=== PATIENT | female | born 1935 | race Caucasian/White ===

== ENCOUNTER 2016-06-27 17:20 | Emergency (ER) | payer MEDICARE, OTHER ==
[2016-06-27 17:50] VITALS: BP 131/73
== END 2016-06-27 19:59 | disposition left against medical advice (07) ==
LOC: ED 17:20
DX: R51 Headache (principal); Z53.21 Procedure and treatment not carried out due to patient leaving prior to being seen by health care provider

== ENCOUNTER 2017-10-20 08:01 | Day surgery (SDC) | payer MEDICARE ==
--- NOTE | 2017-10-16 21:05 | HP ---
CC: Dr. Rafael Gudino; Dr. Estelle Fajardo; [facility] in [place], [place] * ADMISSION HISTORY AND PHYSICAL: DATE OF ADMISSION: 10/20/17 - [facility] ATTENDING SURGEON: Monique Kan MD * (DICTATED BY JACOBO FLETCHER) CHIEF COMPLAINT: Right breast cancer. 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 A screening mammography was done at the [facility] in [place] on 09/19/17 showing an area of asymmetry in the upper outer right breast. This was confirmed by ultrasound, which showed a hypoechoic mass at the 10 o'clock position located 5 cm from the nipple measuring 0.3 x 0.4 x 0.4 cm. 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 The patient had not noted any changes in her breast. She had also undergone a left breast biopsy in September 2016 for an area of architectural distortion that by pathology showed ductal hyperplasia. A biopsy clip is present on recent imaging in the 12 o'clock position on the left breast. The patient was seen and examined in the office by Dr. Kan on 09/26/17 (see separate note). Her studies and past breast history were reviewed. Dr. Kan has recommended needle localization with wide excision and sentinel lymph node biopsy for this right breast cancer. The patient would like to proceed as scheduled. PAST MEDICAL HISTORY: Breast cancer as noted above, allergic rhinitis, and asthma, hyperlipidemia, history of tachycardia (treated with beta-regina), varicose veins, and peripheral edema. She denies history of ME or angina, HTN, or DM. PAST SURGICAL HISTORY: Right breast lumpectomy in 1999 for DCIS, left carpal tunnel release, bilateral total knee replacement, left cataract extraction. CURRENT MEDICATIONS: 1. Atenolol 25 mg once daily. 2. Fish oil 1000 mg once daily. 3. Co-Q10 100 mg once daily. 4. Zyrtec 10 mg once daily p.r.n. 5. Advair 250/50 one puff b.i.d. 6. Albuterol MDI p.r.n. 7. Veramyst nasal spray 1 spray each nostril once daily. 8. Claritin 10 mg once daily p.r.n. 9. Singulair 10 mg once daily. 10. Lipitor 10 mg once daily. 11. Aspirin 81 mg once daily (the patient instructed to hold preoperatively, her last dose being today, 10/16/17). 12. Lorazepam 1 mg at h.s. p.r.n. for insomnia (has only used a couple of doses recently). 13. Multivitamin once daily. 14. Ipratropium nebulizer p.r.n. DRUG ALLERGIES: None known. FAMILY HISTORY: Negative for breast cancer, but positive for ovarian cancer in 2 of her sisters, both diagnosed in their 40s. No family history of anesthesia problems, bleeding or clotting disorders. SOCIAL HISTORY: The patient is . She also has an adopted foster son living with them currently. 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 She admits to drinking approximately one half bottle of wine per day. She denies tobacco use or other recreational drugs. REVIEW OF SYSTEMS: General: No recent constitutional symptoms or acute illnesses other than described in the HPI. Eyes: No recent changes in vision. She has pending right cataract extraction, but on hold for the present problem. Ears, Nose, Throat: No problems reported. Cardiovascular: No chest pain or palpitations. No history of hypertension, tachycardia well controlled with current atenolol. Respiratory: No recent exacerbations of her asthma or allergies. No chronic cough. GI: No problems reported. Colonoscopy last done in 2010 per her chart record and reportedly normal. : No problems reported. 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 PHYSICAL EXAMINATION GENERAL: A well-nourished, well-developed female, in no acute distress. VITAL SIGNS: Height 65 inches, weight 187 pounds by history. Blood pressure 128/70, pulse 66, respirations 18. SKIN: Warm and dry. No suspicious rashes or lesions. HEENT: Pupils are equal and round, reactive. EOMs intact. No conjunctival pallor. Oropharynx: Teeth in good repair. No intraoral lesions. NECK: No lymphadenopathy in the cervical or supraclavicular regions. No palpable axillary adenopathy. BREASTS: (Per PA student, Beth Alvarado), there is a 1.5 cm slightly mobile mass in the upper outer quadrant of the right breast. It is nontender. There are no skin or nipple changes. There is no palpable lymphadenopathy. Left breast was not specifically reexamined today. ABDOMEN: Soft, nontender to palpation. No palpable masses or organomegaly. GENITALIA/RECTAL: Not done. BACK: No spinous process or CVA tenderness. EXTREMITIES: 1+ edema bilaterally with some varicose veins. No open lesions. She does have some changes consistent with chronic venous insufficiency i.e. hyperpigmentation. NEUROLOGICAL: Grossly intact. IMPRESSION: Right breast cancer. PLAN: Wide excision, right breast cancer (after needle localization); sentinel lymph node biopsy. JACOBO FLETCHER [id number]/[facility] #: [id number] MTDD
[~2017-10-20 08:01] MED LIST: Buffered Lidocaine 0.9% SYRIN* 5 ML/SYR SYRINGE INTRADERM ONE; Famotidine IV* 10 MG/ML 2 ML (20 mg) IV ONE; Famotidine IV* 10 MG/ML 2 ML (20 mg) ONE
[2017-10-20] MEDS ORDERED: Lidocaine 2.5%/Prilocain 2.5%* 5 GM TUBE ONE (08:02)
[2017-10-20] MEDS ORDERED: ceFAZolin 2 GM PREMIX (*) 2 GM/50 ML BAG IVPB ONE (08:02)
--- NOTE | 2017-10-20 12:31 | RAD ---
INDICATION: Right breast carcinoma COMPARISON: Mammogram February 20, 2018 TECHNIQUE/FINDINGS:: Informed consent was obtained. A routine timeout protocol was utilized. The right breast was prepped in usual fashion and following routine cleansing of the breast a total of 0.303 mCi of technetium 99m sulfur colloid was injected intradermally in the periareolar region in 4 divided doses. After approximately 80 minutes there was faint visualization of the sentinel node which was marked on the skin surface. IMPRESSION: A SENTINEL NODE WAS MARKED BUT THERE WAS VERY FAINT ACTIVITY.
--- NOTE | 2017-10-20 14:58 | RAD ---
INDICATION: Right breast carcinoma 10:00. COMPARISON: Breast MRI September 22, 2017; right breast mammogram September 19, 2017 TECHNIQUE/FINDINGS: Informed consent was obtained. A routine timeout protocol was utilized. The right breast was prepped in usual fashion and from a cephalad approach the microclip at the 10:00 position of the right breast was localized without difficulty. A wire was placed immediately adjacent microclip. The patient tolerated the procedure well. There were no procedural complications. The specimen radiograph is currently pending. A sentinel node scan is to follow. IMPRESSION: SUCCESSFUL WIRE NEEDLE LOCALIZATION MICROCLIP 10:00 POSITION RIGHT BREAST.
[2017-10-20] MEDS ORDERED: Midazolam* 1 MG/ML 5 ML VIAL (5 MG) ONE (17:03)
[2017-10-20] MEDS ORDERED: fentaNYL* 50 MCG/ML 2 ML VIAL (100 MCG VIAL) ONE (17:03)
[2017-10-20] MEDS ORDERED: Propofol* 10 MG/ML 20 ML BTL IV PUSH ONE ×3 (17:03→19:24)
[2017-10-20] MEDS ORDERED: Ondansetron ODT TAB* 4 MG ONE (17:03)
[2017-10-20] MEDS ORDERED: Ketorolac INJ* 30 MG/ML 1 ML VIAL ONE (17:03)
[2017-10-20] MEDS ORDERED: Dexamethasone IV* 4 MG/ML 1 ML (4 MG) ONE (17:03)
[2017-10-20] MEDS ORDERED: Lidocaine 2% PF * 5 ML VIAL ONE (17:03)
[2017-10-20] MEDS ORDERED: KETAMINE HCL* 50 MG/ML 10 ML VIAL ONE (17:03)
[2017-10-20] MEDS ORDERED: Methylene Blue 0.5 %* 50 MG/10 ML AMP IV ONE (17:07)
[2017-10-20] MEDS ORDERED: Lidocaine 1% MPF wEPI 200,000* 30 ML SDV ONE (18:14)
[2017-10-20] MEDS ORDERED: Bupivacaine 0.5% SDV PF* 30ML VIAL ONE (18:15)
[2017-10-20] MEDS ORDERED: Metoprolol Tartrate IV* 1 MG/ML 5 ML VIAL ONE (19:00)
[2017-10-20] MEDS ORDERED: Naloxone* 0.4 MG/ML 1 ML VIAL IV PRN (19:30)
[2017-10-20] MEDS ORDERED: Acetaminophen IV 1GM/100ML * 1,000 MG/100 ML VIAL IVPB ONE (19:30)
[2017-10-20] MEDS ORDERED: fentaNYL* 50 MCG/ML 2 ML VIAL (100 MCG VIAL) IV PRN (19:30)
[2017-10-20] MEDS ORDERED: Levalbuterol 0.63MG/3ML NEB* UNIT OF USE INH PRN (19:30)
[2017-10-20] MEDS ORDERED: Ondansetron ODT TAB* 4 MG PO PRN (19:30)
--- NOTE | 2017-10-20 20:04 | BRIEFOPN ---
Brief Operative Note - Surgery Procedures: Procedures CARPAL TUNNEL RELEASE (03/06/14) CORONARY ARTERIOGRAM NEC (01/08/08) ENDOSC POLYPECTOMY OF LG INTEST (05/14/02) LEFT HEART CARDIAC CATH (01/08/08) 10/20/17 Op Note (dictated) Pre-op dx: right breast cancer Post-op dx: same Procedure: needle localization excision of right breast cancer and sentinel lymph node biopsy Surgeon: Lucius Asst: Jenny Anesth: local-MAC EBL: 5 cc Complications: none SCDs on during surgery Abx: given pre-op Pt. tolerated procedure well and was transferred to in a stable condition. CLFoster
[2017-10-20] MEDS ORDERED: HYDROcodone/ACETAMIN 5-325 MG* 1 TAB PO PRN (20:05)
[2017-10-20 20:35] VITALS: BP 148/63
--- NOTE | 2017-10-21 18:22 | OP ---
CC: [facility]. OPERATIVE REPORT: DATE OF OPERATION: 10/20/17 DATE OF : 37 SURGEON: Monique Kan MD RUM PROCESSING OPERATOR: JACOBO Alvarado student. PRE-OP DIAGNOSIS: Right breast cancer. POST-OP DIAGNOSIS: Right breast cancer. OPERATIVE PROCEDURE: Needle localization excision of right breast cancer and sentinel lymph node biopsy. INDICATIONS: Ms. Dawson is an 82-year-old woman who was recently diagnosed with breast cancer prompting the plan for surgical intervention. DESCRIPTION OF PROCEDURE: On the morning of surgery, she underwent needle localization and sentinel lymph node localization. The sentinel lymph node localization was fairly faint, so the decision was made to inject blue dye in the holding area. This was done prior to proceeding back to the OR. She was then brought to the operating room, placed on the OR table in a supine position and given IV sedation. The right breast was prepped and draped in the usual sterile fashion taking care not to dislodge the localizing wire. After infiltrating with local anesthetic, a curvilinear incision encompassing the wire and a previous scar was made. Subcutaneous tissue was divided with electrocautery and to excise the mass of tissue from around the wire. This was marked in the usual fashion and handed off as a specimen. Meanwhile, hemostasis was achieved with electrocautery and then attention was turned to the axilla which could be reached through the breast incision. An incision was made along the pectoralis muscle and axillary contents were swept posteriorly. Using the navigator a sentinel node was identified. It had counts on the order of 163 and it was removed using clips to control small lymphatic and blood vessels that approached it and then the ex vivo counts were checked and were 173. The axillary bed counts were 0. The wound was irrigated with saline. Additional local was instilled into the wound and then closure was accomplished with 3-0 Vicryl in the subcutaneous layer and the skin was closed with 4-0 Prolene in the subcuticular fashion. Steri-strips and a dry sterile dressing were applied. All sponge and instrument counts were correct. The patient tolerated the procedure well and was transferred to recovery in a stable condition. [id number]/[facility] #: [id number] [facility]
== END 2017-10-20 20:51 | disposition home or self-care (01) ==
LOC: SDS 08:01
PROVIDERS: ATTEND Surgery
DX: C50.911 Malignant neoplasm of unspecified site of right female breast (principal); J45.909 Unspecified asthma, uncomplicated; E78.5 Hyperlipidemia, unspecified; I83.893 Varicose veins of bilateral lower extremities with other complications; I47.1 Supraventricular tachycardia; Z79.899 Other long term (current) drug therapy; F41.9 Anxiety disorder, unspecified; M19.90 Unspecified osteoarthritis, unspecified site
CPT/HCPCS: 78195; 88271; 88307; 88342; 88360; A9270-GY; A9541; J0690; J1100; J1885; J2001; J2250; J2704; J3010; J3490

== ENCOUNTER 2018-05-02 08:18 | Emergency (ER) | payer MEDICARE ==
--- NOTE | 2018-05-02 08:32 | ED ---
Lower Extremity - HPI Summary HPI Summary: Patient is a 82 y/o F presenting to ED with complaints of pain at right hip and right upper leg after falling in her driveway a few days ago. Patient had thought that the pain would resolve on its own, but it has persisted. She ambulated into the room without any assistance. Patient notes that pain is exacerbated with certain movements. In the room, pain is rated 7/10. 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 Home medications and allergies are reviewed. - History of Current Complaint Stated Complaint: RIGHT LEG PAIN Time Seen by Provider: 05/02/18 08:20 Hx Obtained From: Patient Mechanism Of Injury: Fall From A Standing Position Onset of Pain: Immediate, Days - onset a few days ago, Prior to Arrival Onset/Duration: Still Present - onset a few days ago Severity Currently: Severe - 7/10 Pain Intensity: 7 Pain Scale Used: 0-10 Numeric - 7/10 Timing: Constant, Lasting Days - onset a few days ago Location: Is Discrete @ - right hip, right upper leg Associated Signs And Symptoms: Positive: Other - right hip pain, right upper leg pain Aggravating Factor(s): Standing, Movement - certain, Other - shift weight on affected legs Alleviating Factor(s): Nothing - Allergies/Home Medications Allergies/Adverse Reactions: Allergies Allergy/AdvReac Type Severity Reaction Status Date / Time Adhesive Tape Allergy Itching Verified 10/20/17 13:30 hydrocodone AdvReac Intermediate Vomiting Verified 10/20/17 08:30 ENVIRONMENTAL Allergy Eyes Uncoded 10/20/17 08:30 Itchy/Swollen/Red/Watery PMH/Surg Hx/FS Hx/Imm Hx Endocrine/Hematology History: Denies: Hx Anticoagulant Therapy - ASA daily, Hx Blood Disorders, Hx Diabetes , Hx Unexplained Bleeding Cardiovascular History: Reports: Hx Hypertension - ON MEDS PT. STATES CONTROLLED , Other Cardiovascular Problems/Disorders - varicose veins Denies: Hx Deep Vein Thrombosis Respiratory History: Reports: Hx Asthma GI History: Reports: Other GI Disorders - CONSTIPATION AT TIMES Sensory History: Reports: Hx Contacts or Glasses - GLASSES FOR DRIVING AT NIGHT , Hx Glaucoma - LEFT EYE Denies: Hx Hearing Aid Opthamlomology History: Reports: Hx Contacts or Glasses - GLASSES FOR DRIVING AT NIGHT, Hx Glaucoma - LEFT EYE Psychiatric History: Reports: Hx Anxiety - Surgical History Surgery Procedure, Year, and Place: RIGHT BREAST LUMPECTOMY 2012 [place]. T AND A A CHILD Hx Anesthesia Reactions: No Infectious Disease History: No Infectious Disease History: Denies: Hx of Known/Suspected MRSA, Traveled Outside the [place] in Last 30 Days - Family History Known Family History: Negative: Hypertension, Diabetes - Social History Alcohol Use: Weekly Alcohol Amount: 4 PER DRINKS WEEK Substance Use Type: Reports: None Smoking Status (MU): Former Smoker Type: Cigarettes Amount Used/How Often: 1 Length of Time of Smoking/Using Tobacco: 2 MONTHS Have You Smoked in the Last Year: No Review of Systems Negative: Fever - on vitals, temp is 97.4 F Positive: Other - POSITIVE - RIGHT HIP PAIN, RIGHT UPPER LEG PAIN All Other Systems Reviewed And Are Negative: Yes Physical Exam - Summary Physical Exam Summary: VITAL SIGNS: Reviewed. GENERAL: Patient is a well-developed and nourished FEMALE who is lying comfortable in the stretcher. Patient is not in any acute respiratory distress. HEAD AND FACE: No signs of trauma. No ecchymosis, hematomas or skull depressions. No sinus tenderness. EYES: PERRLA, EOMI x 2, No injected conjunctiva, no nystagmus. EARS: Hearing grossly intact. Ear canals and tympanic membranes are within normal limits. MOUTH: Oropharynx within normal limits. NECK: Supple, trachea is midline, no adenopathy, no JVD, no carotid bruit, no c- spine tenderness, neck with full ROM. CHEST: Symmetric, no tenderness at palpation LUNGS: Clear to auscultation bilaterally. No wheezing or crackles. CVS: Regular rate and rhythm, S1 and S2 present, no murmurs or gallops appreciated. ABDOMEN: Soft, non-tender. No signs of distention. No rebound no guarding, and no masses palpated. Bowel sounds are normal. EXTREMITIES: FROM in all major joints, no edema, no cyanosis or clubbing. There is tenderness at right hip and right proximal area of the right femur. Good pulses, good capillary refill. NEURO: Alert and oriented x 3. No acute neurological deficits. Speech is normal and follows commands. SKIN: Dry and warm Triage Information Reviewed: Yes Vital Signs On Initial Exam: Initial Vitals Temp Pulse Resp BP Pulse Ox 97.4 F 64 18 131/64 94 05/02/18 08:20 05/02/18 08:20 05/02/18 08:20 05/02/18 08:20 05/02/18 08:20 Vital Signs Reviewed: Yes Diagnostics - Vital Signs Vital Signs Temp Pulse Resp BP Pulse Ox 05/02/18 08:20 97.4 F 64 18 131/64 94 - Laboratory Result Diagrams: 05/02/18 09:02 05/02/18 09:02 Lab Statement: Any lab studies that have been ordered have been reviewed, and results considered in the medical decision making process. - Radiology right femur x-ray Radiology Interpretation Completed By: Radiologist Summary of Radiographic Findings: IMPRESSION: Cortical thickening of the midshaft of the femur with some linear lucency for. which a nondisplaced fracture is not totally excluded and correlation with CT is. suggested. THIS REPORT WAS REVIEWED BY ED PHYSICIAN. pelvic x-ray Radiology Interpretation Completed By: Radiologist Summary of Radiographic Findings: IMPRESSION: #. No radiographic evidence for pelvic fracture. THIS REPORT WAS REVIEWED BY ED PHYSICIAN. - CT lower extremity ct CT Interpretation Completed By: Radiologist Summary of CT Findings: IMPRESSION: NO EVIDENCE FOR FRACTURE. THIS REPORT WAS REVIEWED BY ED PHYSICIAN. Re-Evaluation - Re-Evaluation First Eval Re-Evaluation Time: 10:38 Comment: I discussed all the findings and test results with the patient. Patient was instructed to return to the emergency room immediately if any of the symptoms return or worsens. Plan of care was discussed with the patient and understands and agrees. All questions were answered at patient satisfaction. There were no further complaints or concerns. Lung exam before discharge: CTA B /L. Good air exchange. No wheezing or crackles heard. CVS: S1 and S2 present. No murmurs appreciated. Patient is alert and oriented x 3. Patient is hemodynamically stable. Patient will be discharged home with follow up PCP in the next 2-3 days Lower Extremity Course/Dx - Course Assessment/Plan: Patient is a 82 y/o F presenting to ED with complaints of pain at right hip and right upper leg after falling in her driveway a few days ago. Patient had thought that the pain would resolve on its own, but it has persisted. She ambulated into the room without any assistance. Patient notes that pain is exacerbated with certain movements. In the room, pain is rated 7/ 10. 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 Home medications and allergies are reviewed. Blood workup without any significant abnormality except for CRP of 25 and total protein of 6. Right pelvic x-ray impression: No radiographic evidence for pelvic fracture. And a femur x-ray impression: Cortical thickening of the need shaft of the femur with some linear lucency for which an nondisplaced fracture is not totally excluded Correlate with the CT of the femur. CT of the right femur impression: No evidence for fracture. Therefore the patient will be given Toradol for the pain and will be discharged home with follow-up with primary care physician. I discussed all the findings and test results with the patient. Patient was instructed to return to the emergency room immediately if any of the symptoms return or worsens. Plan of care was discussed with the patient and understands and agrees. All questions were answered at patient satisfaction. There were no further complaints or concerns. Lung exam before discharge: CTA B/L. Good air exchange. No wheezing or crackles heard. CVS: S1 and S2 present. No murmurs appreciated. Patient is alert and oriented x 3. Patient is hemodynamically stable. Patient will be discharged home with follow up PCP in the next 2-3 days - Diagnoses Provider Diagnoses: Hip pain, Leg pain Discharge - Sign-Out/Discharge Documenting (check all that apply): Patient Departure - DISCHARGE - Discharge Plan Condition: Stable Disposition: HOME Patient Education Materials: Hip Pain (ED), Leg Pain (ED) Referrals: Rafael Gudino MD [Primary Care Provider] - 3 Days Additional Instructions: RETURN TO ED FOR NEW OR WORSENING SYMPTOMS. FOLLOW UP WITH YOUR PRIMARY CARE PHYSICIAN IN 2-3 DAYS. - Billing Disposition and Condition Condition: STABLE Disposition: Home - Attestation Statements Document Initiated by Alexia: Yes Documenting Scribe: RUBEN LUNDBERG Provider For Whom Alexia is Documenting (Include Credential): MAHAMED ROGERS MD Scribe Attestation: RUBEN Su, scribed for MAHAMED ROGERS MD on 05/03/18 at 2145. Scribe Documentation Reviewed: Yes Provider Attestation: The documentation as recorded by the RUBEN hawkins accurately reflects the service I personally performed and the decisions made by me, MAHAMED ROGERS MD Status of Scribe Document: Viewed
[2018-05-02 09:17] LABS: ABS Basophils 0 10^3/ul (0-0.2); ABS Eosinophils 0.2 10^3/ul (0-0.6); ABS Lymphocytes 0.9 10^3/ul (1.0-4.8); ABS Monocytes 0.5 10^3/ul (0-0.8); ABS Neutrophils 2.5 10^3/ul (1.5-7.7); ABS Nucleated RBC 0 10^3/ul; Eosinophil % 5.8 %; Hematocrit 39 % (35-47); Hemoglobin 13.4 g/dl (12.0-16.0); Lymphocyte % 20.6 %; Mean Corpuscular HGB Conc 34 g/dl (31-36); Mean Corpuscular Hemoglobin 34 pg (27-31); Mean Corpuscular Volume 100 fL (80-97); Mean Platelet Volume 7.4 fL (7.4-10.4); Nucleated Red Blood Cells % 0.1; Platelet Count 187 10^3/ul (150-450); Red Blood Count 3.93 10^6/ul (4.00-5.40); Red Cell Distribution Width 13 % (10.5-15); White Blood Count 4.1 10^3/ul (3.5-10.8)
[2018-05-02 09:32] LABS: EGFR Non-African American 101.8 (>60)
[2018-05-02] MEDS ORDERED: Ketorolac INJ* 60 MG/2 ML VIAL IM ONE (10:36)
[2018-05-02 11:05] VITALS: BP 118/62
== END 2018-05-02 11:04 | disposition home or self-care (01) ==
LOC: ED 08:18
DX: M25.551 Pain in right hip (principal); M79.651 Pain in right thigh; I10 Essential (primary) hypertension; Z79.82 Long term (current) use of aspirin; J45.909 Unspecified asthma, uncomplicated; Z87.891 Personal history of nicotine dependence; W19.XXXA Unspecified fall, initial encounter; Y92.007 Garden or yard of unspecified non-institutional (private) residence as the place of occurrence of the external cause
CPT/HCPCS: 36415; 72170; 80053; 83605; 85025; 86140; 96372; 99282; J1885

== ENCOUNTER 2023-02-21 15:18 | Inpatient (IN) ==
[2023-02-21] MEDS ORDERED: Ondansetron 4 mg VIAL 2 MG/ML 2 ml VIAL IV ONE (15:34)
[2023-02-21] MEDS ORDERED: Morphine 2 MG/ML SYRINGE IV ONE ×2 (15:34→22:58)
[2023-02-21 15:49] LABS: ABS Eosinophils 0.1 10^3/uL (0.0-0.5); ABS Lymphocytes 1.3 10^3/uL (1.0-4.8); ABS Monocytes 0.3 10^3/uL (0.0-0.9); ABS Nucleated RBC 0.01 10^3/ul; Eosinophil % 2.1 %; Hematocrit 35.9 % (35-45); Hemoglobin 12.3 g/dL (11.5-14.3); Lymphocyte % 27.1 %; Mean Corpuscular Hemoglobin 33.2 pg (27-33); Mean Corpuscular Hgb Conc 34.1 g/dL (31-36); Mean Corpuscular Volume 97.1 fL (80-97); Mean Platelet Volume 6.9 fL (7.5-11.2); Nucleated Red Blood Cells % 0.1 /100 WBC (0.0-0.4); Platelet Count 213 10^3/uL (150-450); Red Blood Count 3.69 10^6/uL (3.63-4.92); Red Cell Distribution Width 13.9 % (12-17); White Blood Count 4.8 10^3/uL (3.8-11.8)
[2023-02-21 16:10] LABS: Albumin 3.5 g/dL (3.2-5.2); Calcium 8.5 mg/dL (8.6-10.3); Magnesium 1.9 mg/dL (1.9-2.7); Potassium 3.6 mmol/L (3.5-5.0); Total Bilirubin 0.3 mg/dL (0.2-1.0)
[2023-02-21 16:16] LABS: Albumin/Globulin Ratio 1.5 (1-3); Creatinine, Serum 0.54 mg/dL (0.51-0.95); Globulin 2.4 g/dL (2-4); Total Protein 5.9 g/dL (6.4-8.9); eGFR CKD-EPI 89.6 (>60)
[2023-02-21 17:25] LABS: High Sensitivity Troponin 1 Hr 9 pg/mL (<15)
[2023-02-21 18:43] LABS: Urine Appearance Cloudy; Urine Bilirubin Negative (Negative); Urine Blood 1+ (Negative); Urine Color Yellow; Urine Glucose Negative (Negative); Urine Ketones Negative (Negative); Urine Nitrite Negative (Negative); Urine Protein Negative (Negative); Urine Specific Gravity 1.018 (1.002-1.030); Urine Urobilinogen Negative (Negative)
[2023-02-21 18:51] LABS: Urine Bacteria 1+ (Absent); Urine Red Blood Cell 2+(6-10/hpf) (Absent); Urine Squamous Epithelial Cell Present (Absent); Urine White Blood Cell 3+(>20/hpf) (Absent)
[2023-02-21] MEDS ORDERED: Heparin 5000 UNITS/ML 1 mL VIAL SUBCUT ONE (21:36)
[2023-02-21] MEDS: Acetaminophen IV 1 GM/100ML 1,000 MG/100 ML BAG IV PRN (21:50)
[2023-02-21 22:15] LABS: ABS Lymphocytes 0.7 10^3/uL (1.0-4.8); ABS Monocytes 0.5 10^3/uL (0.0-0.9); Eosinophil % 0.3 %; Hematocrit 34.4 % (35-45); Hemoglobin 11.7 g/dL (11.5-14.3); Lymphocyte % 8.1 %; Mean Corpuscular Hemoglobin 33.1 pg (27-33); Mean Corpuscular Hgb Conc 33.9 g/dL (31-36); Mean Corpuscular Volume 97.8 fL (80-97); Mean Platelet Volume 6.6 fL (7.5-11.2); Platelet Count 196 10^3/uL (150-450); Red Blood Count 3.52 10^6/uL (3.63-4.92); White Blood Count 8.2 10^3/uL (3.8-11.8)
[2023-02-21 22:29] LABS: Creatinine, Serum 0.58 mg/dL (0.51-0.95); eGFR CKD-EPI 88.1 (>60)
[2023-02-21 22:44] LABS: Activated Partial Thrombo Time 28.9 seconds (26.0-38.0); INR 1.03 (0.83-1.13)
[2023-02-22 07:19] LABS: ABS Lymphocytes 0.9 10^3/uL (1.0-4.8); ABS Monocytes 0.4 10^3/uL (0.0-0.9); ABS Neutrophils 4.8 10^3/uL (1.5-7.6); Eosinophil % 0.3 %; Hematocrit 35.2 % (35-45); Lymphocyte % 14.4 %; Mean Corpuscular Hemoglobin 33.2 pg (27-33); Mean Corpuscular Hgb Conc 34.1 g/dL (31-36); Mean Corpuscular Volume 97.6 fL (80-97); Mean Platelet Volume 6.8 fL (7.5-11.2); Platelet Count 189 10^3/uL (150-450); Red Blood Count 3.61 10^6/uL (3.63-4.92); Red Cell Distribution Width 13.6 % (12-17); White Blood Count 6.1 10^3/uL (3.8-11.8)
[2023-02-22 07:29] LABS: Calcium 9.3 mg/dL (8.6-10.3); Creatinine, Serum 0.67 mg/dL (0.51-0.95); Potassium 4.2 mmol/L (3.5-5.0); eGFR CKD-EPI 85.1 (>60)
[2023-02-22] MEDS: Mometasone/Formoter 100/5 MDI INH SCH ×2 (08:19→20:07)
[2023-02-22] MEDS ORDERED: Lactated Ringers 1000 ml BAG 1,000 ML IV ONE (09:38)
[2023-02-22] MEDS: Acetaminophen IV 1 GM/100ML 1,000 MG/100 ML BAG IV PRN ×2 (11:32→20:44)
[2023-02-22] MEDS ORDERED: Heparin 5000 UNITS/ML 1 mL VIAL SUBCUT ONE (20:56)
[2023-02-23 05:45] LABS: ABS Eosinophils 0.1 10^3/uL (0.0-0.5); ABS Lymphocytes 0.9 10^3/uL (1.0-4.8); ABS Monocytes 0.6 10^3/uL (0.0-0.9); ABS Neutrophils 4.8 10^3/uL (1.5-7.6); Eosinophil % 1.9 %; Hemoglobin 10.3 g/dL (11.5-14.3); Lymphocyte % 14.5 %; Mean Corpuscular Hemoglobin 33.4 pg (27-33); Mean Corpuscular Hgb Conc 34.3 g/dL (31-36); Mean Corpuscular Volume 97.4 fL (80-97); Mean Platelet Volume 6.9 fL (7.5-11.2); Nucleated Red Blood Cells % 0.1 /100 WBC (0.0-0.4); Platelet Count 150 10^3/uL (150-450); Red Blood Count 3.08 10^6/uL (3.63-4.92); Red Cell Distribution Width 13.9 % (12-17); White Blood Count 6.5 10^3/uL (3.8-11.8)
[2023-02-23 05:50] LABS: INR 1.14 (0.83-1.13)
[2023-02-23] MEDS: Acetaminophen IV 1 GM/100ML 1,000 MG/100 ML BAG IV PRN (06:00)
[2023-02-23 06:04] LABS: Calcium 8.6 mg/dL (8.6-10.3); Creatinine, Serum 0.5 mg/dL (0.51-0.95); Magnesium 1.9 mg/dL (1.9-2.7); Potassium 3.9 mmol/L (3.5-5.0); eGFR CKD-EPI 91.3 (>60)
[2023-02-23] MEDS: Mometasone/Formoter 100/5 MDI INH SCH ×2 (08:39→18:56)
[2023-02-23] MEDS ORDERED: Propofol 10 MG/ML 20 ML BTL ONE ×2 (09:09→11:17)
[2023-02-23] MEDS ORDERED: fentaNYL 100 mcg/2 ml 50 MCG/ML VIAL ONE ×2 (09:09→12:38)
[2023-02-23] MEDS ORDERED: Lidocaine 2% PF 5 ML VIAL ONE (09:09)
[2023-02-23] MEDS ORDERED: Phenylephrine IV 10 MG/ML 1 ml VIAL ONE (09:09)
[2023-02-23] MEDS ORDERED: Ondansetron 4 mg VIAL 2 MG/ML 2 ml VIAL ONE (09:09)
[2023-02-23] MEDS ORDERED: Bupivacaine 0.5% SDV PF 30ML VIAL ONE ×2 (09:59→10:06)
[2023-02-23] MEDS ORDERED: ceFAZolin 2 GM in NS PREMIX 2 GM/100 ML BAG IVPB ONE (10:03)
[2023-02-23] MEDS ORDERED: KETAMINE HCL 10 MG/ML 20 ml VIAL (200 MG) ONE (10:05)
[2023-02-23] MEDS ORDERED: Naloxone 0.4 mg VIAL 0.4 mg/ml 1 ml VIAL IV PRN (11:23)
[2023-02-23] MEDS ORDERED: fentaNYL 100 mcg/2 ml 50 MCG/ML VIAL IV PRN (11:23)
[2023-02-23] MEDS ORDERED: Acetaminophen IV 1 GM/100ML 1,000 MG/100 ML BAG IV PRN (11:23)
[2023-02-23] MEDS ORDERED: Ondansetron 4 mg VIAL 2 MG/ML 2 ml VIAL IV PRN ×2 (11:23→12:34)
[2023-02-23] MEDS ORDERED: HYDROmorphone 1 MG/1 ML SYRINGE IV PRN (11:23)
[2023-02-23] MEDS ORDERED: Senna TAB 8.6 mg TAB PO PRN (12:31)
[2023-02-23] MEDS ORDERED: Magnesium Hydroxide LIQ 30 ML UDC PO PRN ×3 (12:31→12:39)
[2023-02-23] MEDS ORDERED: Polyethylene Glycol 3350 17 GM PACKET PO PRN (12:31)
[2023-02-23] MEDS ORDERED: Morphine 2 MG/ML SYRINGE IV PRN (12:34)
[2023-02-23] MEDS ORDERED: Lidocaine PATCH 4% TOPICAL PRN (12:39)
[2023-02-23] MEDS ORDERED: Benzocaine/Menthol LOZ MT PRN (12:39)
[2023-02-23] MEDS ORDERED: guaiFENesin 100 mg/5 ml LIQ unit dose cup PO PRN (12:39)
[2023-02-23 13:19] LABS: Hematocrit 25.7 % (35-45); Hemoglobin 8.9 g/dL (11.5-14.3)
[2023-02-23] MEDS ORDERED: Acetaminophen IV 1 GM/100ML 1,000 MG/100 ML BAG IV ONE (16:22)
[2023-02-23] MEDS: ceFAZolin 1 GM ADVAN 1 GM in NS 0.9% 50 ML 50 ML IVPB SCH (20:38)
[2023-02-23] MEDS: Magnesium Hydroxide LIQ 30 ML UDC PO SCH (20:46)
[2023-02-23] MEDS ORDERED: Magnesium Hydroxide LIQ 30 ML UDC PO SCH (21:00)
[2023-02-24] MEDS: ceFAZolin 1 GM ADVAN 1 GM in NS 0.9% 50 ML 50 ML IVPB SCH ×2 (02:08→10:39)
[2023-02-24 06:16] LABS: ABS Eosinophils 0.1 10^3/uL (0.0-0.5); ABS Lymphocytes 1.6 10^3/uL (1.0-4.8); ABS Monocytes 0.8 10^3/uL (0.0-0.9); ABS Neutrophils 5.6 10^3/uL (1.5-7.6); ABS Nucleated RBC 0.01 10^3/ul; Eosinophil % 0.8 %; Hematocrit 23.1 % (35-45); Hemoglobin 8.2 g/dL (11.5-14.3); Lymphocyte % 20.2 %; Mean Corpuscular Hemoglobin 33.8 pg (27-33); Mean Corpuscular Hgb Conc 35.5 g/dL (31-36); Mean Corpuscular Volume 95.1 fL (80-97); Mean Platelet Volume 7.5 fL (7.5-11.2); Nucleated Red Blood Cells % 0.1 /100 WBC (0.0-0.4); Platelet Count 132 10^3/uL (150-450); Red Blood Count 2.42 10^6/uL (3.63-4.92); Red Cell Distribution Width 15.1 % (12-17)
[2023-02-24 06:24] LABS: Calcium 7.8 mg/dL (8.6-10.3); Creatinine, Serum 0.63 mg/dL (0.51-0.95); Potassium 4.2 mmol/L (3.5-5.0); eGFR CKD-EPI 86.3 (>60)
[2023-02-24] MEDS: Mometasone/Formoter 100/5 MDI INH SCH ×2 (08:27→19:51)
[2023-02-24] MEDS: Magnesium Hydroxide LIQ 30 ML UDC PO SCH ×2 (09:04→20:29)
[2023-02-24] MEDS: Aspirin EC 81 mg TAB.EC (enteric coated) PO SCH (09:04)
[2023-02-24] MEDS: Polyethylene Glycol 3350 17 GM PACKET PO PRN (10:02)
[2023-02-24] MEDS: Enoxaparin 40 MG/0.4 ML SYR SUBCUT SCH (12:52)
[2023-02-24] MEDS: cefTRIAXone 1 gm/50 mL D5W 1 GM/50 ML BAG IV SCH (20:44)
[2023-02-25] MEDS: Acetaminophen IV 1 GM/100ML 1,000 MG/100 ML BAG IV PRN ×2 (02:41→13:56)
[2023-02-25 05:46] LABS: ABS Eosinophils 0.1 10^3/uL (0.0-0.5); ABS Lymphocytes 1.3 10^3/uL (1.0-4.8); ABS Monocytes 0.8 10^3/uL (0.0-0.9); ABS Nucleated RBC 0.01 10^3/ul; Eosinophil % 0.9 %; Hematocrit 18.8 % (35-45); Hemoglobin 6.5 g/dL (11.5-14.3); Lymphocyte % 12.4 %; Mean Corpuscular Hemoglobin 33.4 pg (27-33); Mean Corpuscular Hgb Conc 34.7 g/dL (31-36); Mean Corpuscular Volume 96.4 fL (80-97); Mean Platelet Volume 7.8 fL (7.5-11.2); Nucleated Red Blood Cells % 0.1 /100 WBC (0.0-0.4); Platelet Count 154 10^3/uL (150-450); Red Blood Count 1.95 10^6/uL (3.63-4.92); Red Cell Distribution Width 14.6 % (12-17); White Blood Count 10.2 10^3/uL (3.8-11.8)
[2023-02-25 06:08] LABS: Calcium 7.7 mg/dL (8.6-10.3); Creatinine, Serum 0.53 mg/dL (0.51-0.95); Magnesium 2.4 mg/dL (1.9-2.7); Potassium 4.5 mmol/L (3.5-5.0)
[2023-02-25] MEDS: Magnesium Hydroxide LIQ 30 ML UDC PO SCH ×2 (07:44→20:50)
[2023-02-25] MEDS: Mometasone/Formoter 100/5 MDI INH SCH ×2 (08:48→19:49)
[2023-02-25] MEDS: Aspirin EC 81 mg TAB.EC (enteric coated) PO SCH (09:34)
[2023-02-25] MEDS: Enoxaparin 40 MG/0.4 ML SYR SUBCUT SCH (12:42)
[2023-02-25 16:21] LABS: Hematocrit 19.9 % (35-45); Hemoglobin 7.1 g/dL (11.5-14.3)
[2023-02-25] MEDS: cefTRIAXone 1 gm/50 mL D5W 1 GM/50 ML BAG IV SCH (20:39)
[2023-02-26 05:48] LABS: ABS Basophils 0.1 10^3/uL (0.0-0.1); ABS Eosinophils 0.2 10^3/uL (0.0-0.5); ABS Lymphocytes 1.3 10^3/uL (1.0-4.8); ABS Monocytes 0.6 10^3/uL (0.0-0.9); ABS Neutrophils 6.6 10^3/uL (1.5-7.6); ABS Nucleated RBC 0.03 10^3/ul; Eosinophil % 1.8 %; Mean Corpuscular Hemoglobin 33.1 pg (27-33); Mean Corpuscular Hgb Conc 34.9 g/dL (31-36); Mean Corpuscular Volume 94.9 fL (80-97); Mean Platelet Volume 7.3 fL (7.5-11.2); Nucleated Red Blood Cells % 0.3 /100 WBC (0.0-0.4); Platelet Count 168 10^3/uL (150-450); Red Blood Count 2.11 10^6/uL (3.63-4.92); Red Cell Distribution Width 15.5 % (12-17); White Blood Count 8.7 10^3/uL (3.8-11.8)
[2023-02-26 06:06] LABS: Calcium 7.7 mg/dL (8.6-10.3); Creatinine, Serum 0.44 mg/dL (0.51-0.95); Magnesium 2.4 mg/dL (1.9-2.7); Potassium 3.9 mmol/L (3.5-5.0); eGFR CKD-EPI 94.1 (>60)
[2023-02-26] MEDS: Mometasone/Formoter 100/5 MDI INH SCH ×2 (08:01→19:58)
[2023-02-26] MEDS: Magnesium Hydroxide LIQ 30 ML UDC PO SCH ×2 (08:50→21:49)
[2023-02-26 12:10] LABS: Hematocrit 20.2 % (35-45)
[2023-02-26 21:48] LABS: Hematocrit 23.5 % (35-45); Hemoglobin 8.3 g/dL (11.5-14.3)
[2023-02-26] MEDS: cefTRIAXone 1 gm/50 mL D5W 1 GM/50 ML BAG IV SCH (21:49)
[2023-02-27 06:01] LABS: ABS Eosinophils 0.2 10^3/uL (0.0-0.5); ABS Lymphocytes 1.3 10^3/uL (1.0-4.8); ABS Monocytes 0.6 10^3/uL (0.0-0.9); ABS Neutrophils 5.5 10^3/uL (1.5-7.6); ABS Nucleated RBC 0.07 10^3/ul; Hematocrit 23.3 % (35-45); Hemoglobin 8.2 g/dL (11.5-14.3); Lymphocyte % 17.6 %; Mean Corpuscular Hemoglobin 32.6 pg (27-33); Mean Corpuscular Hgb Conc 35.1 g/dL (31-36); Mean Corpuscular Volume 92.9 fL (80-97); Mean Platelet Volume 7.1 fL (7.5-11.2); Nucleated Red Blood Cells % 0.9 /100 WBC (0.0-0.4); Platelet Count 195 10^3/uL (150-450); White Blood Count 7.6 10^3/uL (3.8-11.8)
[2023-02-27 06:39] LABS: Calcium 7.9 mg/dL (8.6-10.3); Creatinine, Serum 0.4 mg/dL (0.51-0.95); Magnesium 2.4 mg/dL (1.9-2.7); Potassium 3.9 mmol/L (3.5-5.0); eGFR CKD-EPI 96.3 (>60)
[2023-02-27] MEDS: Mometasone/Formoter 100/5 MDI INH SCH ×2 (08:00→20:39)
[2023-02-27] MEDS: Senna TAB 8.6 mg TAB PO PRN (09:16)
[2023-02-27] MEDS: Magnesium Hydroxide LIQ 30 ML UDC PO SCH ×2 (09:17→23:50)
[2023-02-27] MEDS: Enoxaparin 40 MG/0.4 ML SYR SUBCUT SCH (10:37)
[2023-02-27 11:10] LABS: Rapid COVID-19 Molecular Undetected (Undetected)
[2023-02-27 20:22] LABS: Hematocrit 25.8 % (35-45)
[2023-02-27] MEDS: cefTRIAXone 1 gm/50 mL D5W 1 GM/50 ML BAG IV SCH (22:36)
[2023-02-28] MEDS: Acetaminophen IV 1 GM/100ML 1,000 MG/100 ML BAG IV PRN (04:04)
[2023-02-28 06:58] LABS: Calcium 7.9 mg/dL (8.6-10.3); Creatinine, Serum 0.42 mg/dL (0.51-0.95); Magnesium 2.4 mg/dL (1.9-2.7); Potassium 3.9 mmol/L (3.5-5.0); eGFR CKD-EPI 95.2 (>60)
[2023-02-28 07:04] LABS: ABS Eosinophils 0.2 10^3/uL (0.0-0.5); ABS Lymphocytes 1.2 10^3/uL (1.0-4.8); ABS Monocytes 0.7 10^3/uL (0.0-0.9); ABS Neutrophils 5.5 10^3/uL (1.5-7.6); ABS Nucleated RBC 0.03 10^3/ul; Eosinophil % 2.1 %; Hematocrit 22.6 % (35-45); Hemoglobin 7.9 g/dL (11.5-14.3); Mean Corpuscular Hemoglobin 32.8 pg (27-33); Mean Corpuscular Hgb Conc 34.9 g/dL (31-36); Mean Platelet Volume 7.2 fL (7.5-11.2); Nucleated Red Blood Cells % 0.4 /100 WBC (0.0-0.4); Platelet Count 233 10^3/uL (150-450); Red Cell Distribution Width 15.8 % (12-17); White Blood Count 7.6 10^3/uL (3.8-11.8)
[2023-02-28] MEDS: Mometasone/Formoter 100/5 MDI INH SCH ×2 (08:36→19:44)
[2023-02-28] MEDS: Magnesium Hydroxide LIQ 30 ML UDC PO SCH (09:40)
[2023-02-28] MEDS: Enoxaparin 40 MG/0.4 ML SYR SUBCUT SCH (09:46)
[2023-02-28 16:18] LABS: ABS Eosinophils 0.2 10^3/uL (0.0-0.5); ABS Lymphocytes 1.3 10^3/uL (1.0-4.8); ABS Monocytes 0.7 10^3/uL (0.0-0.9); ABS Neutrophils 5.2 10^3/uL (1.5-7.6); ABS Nucleated RBC 0.03 10^3/ul; Eosinophil % 2.6 %; Hematocrit 24.3 % (35-45); Hemoglobin 8.3 g/dL (11.5-14.3); Lymphocyte % 17.6 %; Mean Corpuscular Hemoglobin 32.3 pg (27-33); Nucleated Red Blood Cells % 0.4 /100 WBC (0.0-0.4); Platelet Count 255 10^3/uL (150-450); Red Blood Count 2.56 10^6/uL (3.63-4.92); White Blood Count 7.4 10^3/uL (3.8-11.8)
[2023-02-28] MEDS: Senna TAB 8.6 mg TAB PO PRN (21:39)
[2023-03-01 07:13] LABS: Calcium 8.2 mg/dL (8.6-10.3); Creatinine, Serum 0.41 mg/dL (0.51-0.95); Magnesium 2.3 mg/dL (1.9-2.7); Potassium 4.1 mmol/L (3.5-5.0); eGFR CKD-EPI 95.8 (>60)
[2023-03-01 07:15] LABS: ABS Eosinophils 0.2 10^3/uL (0.0-0.5); ABS Lymphocytes 1.3 10^3/uL (1.0-4.8); ABS Monocytes 0.6 10^3/uL (0.0-0.9); ABS Neutrophils 4.2 10^3/uL (1.5-7.6); ABS Nucleated RBC 0.02 10^3/ul; Eosinophil % 2.5 %; Hematocrit 24.2 % (35-45); Hemoglobin 8.3 g/dL (11.5-14.3); Lymphocyte % 20.8 %; Mean Corpuscular Hemoglobin 32.8 pg (27-33); Mean Corpuscular Hgb Conc 34.3 g/dL (31-36); Mean Corpuscular Volume 95.7 fL (80-97); Mean Platelet Volume 6.9 fL (7.5-11.2); Nucleated Red Blood Cells % 0.3 /100 WBC (0.0-0.4); Platelet Count 269 10^3/uL (150-450); Red Blood Count 2.53 10^6/uL (3.63-4.92); White Blood Count 6.3 10^3/uL (3.8-11.8)
[2023-03-01] MEDS: Mometasone/Formoter 100/5 MDI INH SCH (07:30)
[2023-03-01] MEDS: Polyethylene Glycol 3350 17 GM PACKET PO PRN (07:41)
[2023-03-01] MEDS: Enoxaparin 40 MG/0.4 ML SYR SUBCUT SCH (07:42)
[2023-03-01 09:50] VITALS: BP 98/61
== END 2023-03-01 13:45 | DRG 481 ==
LOC: SSU 15:18 → ED 15:18 → SSU 21:15 → SUATTDRO 21:35
PROVIDERS: ADMIT Internal Medicine; ATTEND Internal Medicine